=== PATIENT | female | born 1960 | race Caucasian/White ===

== ENCOUNTER 2024-08-06 17:36 | Emergency (ER) | payer OTHER ==
[2024-08-06 17:43] VITALS: BP 113/74; PULSE 60; RESP 18; TEMP 98.2; BMI 30.1
[2024-08-06] MEDS ORDERED: LIDOCAINE 4% PATCH TP ONE (19:30)
[2024-08-06] MEDS ORDERED: KETOROLAC TROMETHAMINE 30 MG/1 ML VIAL ONE (19:31)
[2024-08-06] MEDS: LIDOCAINE 5% TOPICAL PATCH TP ONE (19:36)
[2024-08-06] MEDS: KETOROLAC TROMETHAMINE 30 MG/1 ML VIAL IM ONE (19:37)
[2024-08-06] MEDS ORDERED: LIDOCAINE PATCH REMOVAL MC SCH (22:00)
== END 2024-08-06 20:18 | disposition home or self-care (01) ==
LOC: JERFT 17:36
PROC: 3E0133Z Introduction of Anti-inflammatory into Subcutaneous Tissue, Percutaneous Approach (ICD-10-PCS; principal; 2024-08-06)
DX: M54.50 Low back pain, unspecified (principal); G89.29 Other chronic pain
CPT/HCPCS: 96374; 99284-25